=== PATIENT | female | born 1960 | race Caucasian/White ===

== ENCOUNTER → 2020-02-02 09:10 | Outpatient (CLI) | payer BC, SELFPAY ==
--- NOTE | ~2020-02-02 | MR_ITS ---
EXAMINATION: MR knee RT wo con DATE: 02/02/2020 10:22 INDICATION: Right knee pain and swelling TECHNIQUE: Magnetic resonance imaging (MRI) of the right knee was performed without intravenous contr ast. Sequences included coronal PD-weighted FSE, coronal PD-weighted FS FSE, sagittal T2-weighted FS E, sagittal PD-weighted FS FSE and axial PD weighted fat saturated FSE. COMPARISON: None. FINDINGS: Medial compartment: Medial meniscus is normal. Partial-thickness cartilage loss with chondral surface irregularity but wi thout degenerative subarticular changes along the anterior to central weightbearing medial femoral co ndyle. Partial thickness cartilage loss with smooth chondral surface along the medial tibial plateau. There is marrow edema along the medial margin of the medial tibial plateau with subtle concavity to the articular cortex, unclear whether due to chronic degenerative remodeling or more recent subarticu lar fracture. Lateral compartment: Lateral meniscus is normal. Chondral fissuring across significant portion of the lateral tibial plate au, deep along the medial side with mild subarticular edema along the shoulder the intercondylar bassem ence. Cartilage along the weightbearing lateral femoral condyle appears relatively preserved. Patellofemoral compartment: Partial-thickness cartilage loss with chondral surface irregularity and mild fissuring without degene rative subchondral changes along the medial and lateral patellar facets and medial and lateral trochl ea. Ligaments and tendons: Anterior and posterior cruciate ligaments are normal. The medial collateral ligament and fibular cassy ateral ligament complex are normal. The extensor mechanism is normal. The visualized medial and later al hamstring tendons as well as the iliotibial band are normal. Fluid: Small to moderate sized right knee joint effusion. No loose osteochondral bodies identified. Osseous/other: Bone alignment is normal. No fracture or pathologic marrow replacing process. IMPRESSION: 1. Mild tricompartmental osteoarthritis with regions of moderate grade chondromalacia in all 3 compar tments and small region of high-grade chondromalacia along the medial side of the lateral tibial plat eau. 2. Marrow edema underlying a small shallow concavity along the medial rim of the medial tibial platea u which could represent secondary remodeling related to focally more severe osteoarthritis or more li gabriela sequela of a relatively recent subarticular impaction versus insufficiency fracture. 3. Small to moderate sized right knee joint effusion. Reviewed, dictated and finalized at location B. IMPRESSION: 1. Mild tricompartmental osteoarthritis with regions of moderate grade chondrom alacia in all 3 compartments and small region of high-grade chondromalacia humberto g the medial side of the lateral tibial plateau. 2. Marrow edema underlying a small shallow concavity along the medial rim of th e medial tibial plateau which could represent secondary remodeling related to f ocally more severe osteoarthritis or more likely sequela of a relatively recent subarticular impaction versus insufficiency fracture. 3. Small to moderate sized right knee joint effusion.
== END ==
PROVIDERS: Visit Provider Orthopaedic Surgery
DX: M25.561 Pain in right knee (principal); M17.11 Unilateral primary osteoarthritis, right knee; M94.261 Chondromalacia, right knee; M79.89 Other specified soft tissue disorders; M25.461 Effusion, right knee
CPT/HCPCS: 73721

== ENCOUNTER → 2020-04-04 10:02 | Outpatient (CLI) | payer BC, SELFPAY ==
--- NOTE | ~2020-04-04 | XR_ITS ---
EXAMINATION: XR hip LT min 2V EXAM DATE: 04/04/2020 10:13 INDICATION: M25.559 - Pain in unspecified hip No known recent injury provided at this time. Pain of the left hip. TECHNIQUE: Left hip frontal, 'frog leg' projections for interpretation. There is no prior study for comparison. FINDINGS: Smooth left hip femoral head contour, no radiographic evidence of avascular necrosis. Ther e is moderate primary osteoarthritis. There are no acute fractures or dislocations identified. There is no subcutaneous gas. The soft tissue is unremarkable. There are no radiopaque foreign bodies. IMPRESSION: Moderate left hip osteoarthritis. Reviewed, dictated and finalized at location B. 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
== END ==
PROVIDERS: PCP Family Medicine; Visit Provider Physician Assistant
DX: M16.12 Unilateral primary osteoarthritis, left hip (principal)
CPT/HCPCS: 73502

== ENCOUNTER 2020-04-20 11:20 | Outpatient (CLI) | payer BC, SELFPAY ==
--- NOTE | ~2020-04-20 | XR_ITS ---
EXAMINATION: XR lg joint inject/asp w image DATE: 04/20/2020 12:24 INDICATION: Left hip osteoarthritis. TECHNIQUE: A time-out was performed to verify the patient's name, date of , and procedure to b e performed. The procedure including the risks, benefits, and alternatives was discussed with the pat ient. Risks discussed included bleeding and infection. The patient understood the risks and agreed to proceed. The skin overlying the left hip joint was prepped and draped in usual sterile fashion. An esthetic was administered with 1% lidocaine subcutaneously. A 22 G needle was advanced under fluoros copic guidance into the joint. Injection of 1 mL of Omnipaque 240 confirmed intra-articular position of the needle. Subsequently, injectate consisting of 5 mL 1% lidocaine and 2 mL 10 mg/mL Kenalog wa s instilled. The needle was removed and the entry site was cleaned and dressed. There were no immed iate complications. Fluoroscopy exposure time was 0.1 minutes. The total number of images was 2. FINDINGS: Real-time fluoroscopy demonstrates the needle in the left hip joint. Patient's pain prior t o procedure:6-7/10. Patient's pain following the procedure: 2-3/10. IMPRESSION: 1. Fluoroscopy guided left hip joint injection of local anesthetic and steroid with decrease in the p atient's presenting pain. Reviewed, dictated and finalized at location A. PILOT IMPRESSION: 1. Fluoroscopy guided left hip joint injection of local anesthetic and steroid with decrease in the patient's presenting pain.
== END 2020-04-20 11:21 | disposition home or self-care (01) ==
PROVIDERS: PCP Family Medicine; Visit Provider Orthopaedic Surgery
DX: M16.12 Unilateral primary osteoarthritis, left hip (principal)
CPT/HCPCS: 20610; 77002; J3301; Q9966

== ENCOUNTER 2021-10-01 15:17 | Outpatient (CLI) | payer BC, SELFPAY ==
--- NOTE | ~2021-10-01 | DEXA_ITS ---
Bone Density Report Name: CANDELARIA FLORES Age: 61 Sex: Female Ethnicity: White Date of : 1960 Indication: postmenopausal; screening for osteoporosis; height loss; hysterectomy; Referring Provider: HARSHIL HORTON Study: Bone densitometry was performed. Exam Date: October 01, 2021 Accession number: [id number] Bone Density: Region BMD T-score Z-score Classification AP Spine(L1-L4) 0.937 -1.0 0.4 Normal Femoral Neck (Right) 0.739 -1.0 0.3 Normal Total Hip (Right) 0.965 0.2 1.1 Normal World Health Organization criteria for BMD impression classify patients as: Normal (T-score at or above -1.0), Osteopenia (T-score between -1.0 and -2.5), or Osteoporosis (T-score at or below -2.5). 10-year Fracture Risk: FRAX not reported because: All T-scores for Spine Total, Hip Total, Femoral Neck at or above -1.0 Previous Exams: Region Exam Age BMD T-score BMD Change BMD Change Date g/cm2 vs Baseline vs Previous AP Spine (L1-L4) 10/01/2021 61 0.937 -1.0 -0.056 (-5.6%) -0.020 (-2.1%) 05/11/2018 57 0.958 -0.8 -0.035 (-3.5%) 0.009 (1.0%) 05/07/2016 55 0.948 -0.9 -0.044 (-4.5%) -0.044 (-4.5%) 04/19/2014 53 0.993 -0.5 Total Hip(Right) 10/01/2021 61 0.965 0.2 0.066 (7.3%)* 0.032 (3.5%)* 05/11/2018 57 0.933 -0.1 0.033 (3.7%)* 0.051 (5.8%)* 05/07/2016 55 0.882 -0.5 -0.018 (-2.0%) -0.018 (-2.0%) 04/19/2014 53 0.899 -0.3 *Denotes significance at 95% confidence level, LSC for AP Spine = 0.022 g/cm2, LSC for Total Hip = 0.027 g/cm2 Clinical Information Provided by Patient: Has the following medical conditions: Hysterectomy Patient maximum height was 65 Menopause Age: 51 No regular weight bearing exercise Onset of menses at age 12 Number of children 1 Impression: The patient has normal bone mass. No significant bone loss was observed. Discussion: BONE DENSITY IS ABOVE THE MINIMUM DESIRABLE LEVEL AT ALL SKELETAL SITES TESTED. This patient?s bone mineral density is above the minimum desirable level (T-score -1.0 or better) at all sites measured. The patient should follow a healthful lifestyle (good nutrition with adequate calcium and vitamin D, and appropriate weight-bearing exercise). Follow-Up: Consider repeating this study in 5 years or sooner if there is some new clinical indication. Reported by: WING on 10/01/2021 3:46:00 PM. Reviewed, dictated and finalized at location Kaylee SHER
== END 2021-10-01 15:18 | disposition home or self-care (01) ==
LOC: ANHIMG 15:18
PROVIDERS: PCP Family Medicine; Visit Provider Student in an Organized Health Care Education/Training Program
DX: Z78.0 Asymptomatic menopausal state (principal)
CPT/HCPCS: 77080

== ENCOUNTER 2021-10-25 11:00 | Outpatient (RCR) | payer BC, SELFPAY ==
[2021-10-25 10:48] VITALS: BMI 41.6
[2021-10-25 10:55] VITALS: BMI 41.6
== END 2021-12-12 11:38 | disposition home or self-care (01) ==
LOC: ANHDMC 11:00
PROVIDERS: PCP Family Medicine; Visit Provider Physician Assistant
DX: E11.65 Type 2 diabetes mellitus with hyperglycemia (principal); Z71.89 Other specified counseling; Z71.3 Dietary counseling and surveillance
CPT/HCPCS: 97802; G0108; G0109

== ENCOUNTER 2022-01-17 14:29 | Outpatient (RCR) | payer BC, SELFPAY | END 2022-04-09 08:46 | disposition home or self-care (01) | LOC: ANHDMC 14:29 | PROVIDERS: PCP Family Medicine; Visit Provider Physician Assistant | DX: E11.65 Type 2 diabetes mellitus with hyperglycemia (principal); Z71.89 Other specified counseling | CPT/HCPCS: G0109 ==